=== PATIENT | female | born 1945 | race Caucasian/White ===

== ENCOUNTER 2016-08-05 13:42 | Inpatient (IN) | payer BC, MEDICARE ==
[2016-08-05] MEDS ORDERED: Sodium Chloride 0.9% 2.5 ML Syringe FLUSH PRN (13:46)
[2016-08-05] MEDS ORDERED: Sodium Chloride 0.9% 10 ML Syringe FLUSH PRN (13:46)
[2016-08-05] MEDS ORDERED: Sodium Chloride 0.9% 1,000 ML IV SCH ×2 (14:00→19:15)
--- NOTE | 2016-08-05 14:14 | EDM.PDOC ---
ED HPI GENERAL MEDICAL PROBLEM - General Chief Complaint: Neurological Problem Stated Complaint: AMBULANCE Time Seen by Provider: 08/05/16 13:45 - History of Present Illness INITIAL COMMENTS - FREE TEXT/NARRATIVE: HISTORY AND PHYSICAL: History of present illness: Patient is a 70-year-old white female history of dementia who presents with return of altered mental status and generalized weakness her is in her last 2 days states that she was more confused yesterday with a change in her gait that was more shuffling she also had an episode of incontinence of bladder and has been sleeping more but no documented fever cough she did have some loose stool for which gave Lomotil x1 dose. There's been no change in her medications no history of known trauma or other concern Review of systems: As per history of present illness and below otherwise all systems reviewed and negative. Past medical history: As per history of present illness and as reviewed below otherwise noncontributory. Surgical history: As per history of present illness and as reviewed below otherwise noncontributory. Social history: No reported history of drug or alcohol abuse. Family history: As per history of present illness and as reviewed below otherwise noncontributory. Physical exam: HEENT: Atraumatic, normocephalic, pupils reactive, negative for conjunctival pallor or scleral icterus, mucous membranes moist, throat clear, neck supple, nontender, trachea midline. Lungs: Clear to auscultation, breath sounds equal bilaterally, chest nontender. Heart: S1S2, regular, negative for clicks, rubs, or JVD. Abdomen: Soft, nondistended, nontender. Negative for masses or hepatosplenomegaly. Negative for costovertebral tenderness. Pelvis: Stable nontender. Genitourinary: Deferred. Rectal: Deferred. Extremities: Atraumatic, negative for cords or calf pain. Neurovascular unremarkable. Neuro: Awake, alert, oriented to person and place. Patient follows commands moves all extremities is limited but grossly nonfocal exam throughout. Exam nonfocal. Diagnostics: CBC CMP PT-INR ammonia level CT brain EKG UA urine culture blood culture x2 urine drug screen EtOH Therapeutics: IV O2 monitor Impression: #1 altered mental status #2 generalized weakness #3 history of dementia Definitive disposition and diagnosis as appropriate pending reevaluation and review of above. - Related Data Allergies Allergy/AdvReac Type Severity Reaction Status Date / Time No Known Allergies Allergy Verified 08/05/16 13:56 Home Meds: Home Meds Donepezil [Aricept] 10 mg PO DAILY 08/05/16 [History] Hydrochlorothiazide 25 mg PO DAILY 08/05/16 [History] OLANZapine [Olanzapine] 5 mg PO DAILY PRN 08/05/16 [History] Simvastatin [Zocor] 20 mg PO ASDIRECTED 08/05/16 [History] Venlafaxine HCl [Venlafaxine ER] 75 mg PO DAILY 08/05/16 [History] amLODIPine Besylate [Norvasc] 2.5 mg PO DAILY 08/05/16 [History] sitaGLIPtin Phos/Metformin HCl [Janumet 50-500 MG] 1 tab PO BID 08/05/16 [ History] Past Medical History Cardiovascular History: Reports: High Cholesterol, Hypertension Neurological History: Reports: Alzheimers Disease Psychiatric History: Reports: Alzheimers Disease, Depression Endocrine/Metabolic History: Reports: Diabetes, Type II - Past Surgical History GI Surgical History: Reports: Cholecystectomy Female Surgical History: Reports: Hysterectomy Social & Family History - Family History Family Medical History: Noncontributory - Tobacco Use Smoking Status *Q: Never Smoker - Caffeine Use Caffeine Use: Reports: None - Recreational Drug Use Recreational Drug Use: No ED ROS GENERAL - Review of Systems Review Of Systems: ROS reveals no pertinent complaints other than HPI. ED EXAM, GENERAL - Physical Exam Exam: See Below (See dictation) Course - Vital Signs Last Recorded V/S: Last Vital Signs Temp 37.7 C 08/05/16 17:46 Pulse 87 08/05/16 17:46 Resp 17 08/05/16 17:46 BP 138/69 08/05/16 17:46 Pulse Ox 94 L 08/05/16 17:58 - Orders/Labs/Meds Orders: Active Orders 24 hr Category Date Time Status Cardiac Monitoring [RC] . DIRECTED Care 08/05/16 13:45 Active EKG Documentation Completion [RC] STAT Care 08/05/16 13:45 Active Pulse Oximetry [RC] ASDIRECTED Care 08/05/16 13:45 Active CULTURE BLOOD [BC] Stat Lab 08/05/16 13:56 Received CULTURE BLOOD [BC] Stat Lab 08/05/16 14:40 Received CULTURE URINE [RM] Stat Lab 08/05/16 14:50 Received Sodium Chloride 0.9% [Normal Saline] 1,000 ml Med 08/05/16 14:00 Active IV STAT Sodium Chloride 0.9% [Saline Flush] Med 08/05/16 13:46 Active 10 ml FLUSH ASDIRECTED PRN Sodium Chloride 0.9% [Saline Flush] Med 08/05/16 13:46 Active 2.5 ml FLUSH ASDIRECTED PRN Blood Culture x2 Reflex Set [OM.PC] Stat Ot 08/05/16 13:46 Ordered Saline Lock Insert [OM.PC] Stat Ot 08/05/16 13:45 Ordered Medication Orders Acetaminophen (Tylenol) 650 mg PO Q4H PRN PRN Reason: Pain (Mild 1-3)/fever Sodium Chloride (Normal Saline) 1,000 mls @ 125 mls/hr IV STAT NORBERTO Last Admin: 08/05/16 14:27 Dose: 125 mls/hr Sodium Chloride (Saline Flush) 10 ml FLUSH ASDIRECTED PRN PRN Reason: Keep Vein Open Last Admin: 08/05/16 14:27 Dose: 10 ml Sodium Chloride (Saline Flush) 2.5 ml FLUSH ASDIRECTED PRN PRN Reason: Keep Vein Open Last Admin: 08/05/16 14:27 Dose: 2.5 ml Labs: Laboratory Tests 08/05/16 08/05/16 08/05/16 Range/Units 13:50 13:50 13:50 WBC 7.71 (4.0-11.0) K/uL RBC 4.89 (4.30-5.90) M/uL Hgb 14.6 (12.0-16.0) g/dL Hct 43.7 (36.0-46.0) % MCV 89.4 (80.0-98.0) fL MCH 29.9 (27.0-32.0) pg MCHC 33.4 (31.0-37.0) g/dL RDW Std Deviation 42.1 (28.0-62.0) fl RDW Coeff of Chacha 13 (11.0-15.0) % Plt Count 237 (150-400) K/uL MPV 9.80 (7.40-12.00) fL Neut % (Auto) 75.7 (48.0-80.0) % Lymph % (Auto) 14.3 L (16.0-40.0) % [place] % (Auto) 9.7 (0.0-15.0) % Eos % (Auto) 0.0 (0.0-7.0) % Baso % (Auto) 0.3 (0.0-1.5) % Neut # (Auto) 5.8 H (1.4-5.7) K/uL Lymph # (Auto) 1.1 (0.6-2.4) K/uL [place] # (Auto) 0.8 (0.0-0.8) K/uL Eos # (Auto) 0.0 (0.0-0.7) K/uL Baso # (Auto) 0.0 (0.0-0.1) K/uL Nucleated RBC % 0.0 /100WBC Nucleated RBCs # 0 K/uL INR 0.98 (0.86-1.11) D-Dimer, Quantitative 1.04 H (0.0-0.52) mg/LFEU Lactate 1.9 (0.20-2.00) mmol/L Sodium (136-146) mmol/L Potassium (3.5-5.1) mmol/L Chloride (98-110) mmol/L Carbon Dioxide (21-31) mmol/L BUN (6.0-23.0) mg/dL Creatinine (0.6-1.5) mg/dL Est Cr Clr Drug Dosing mL/min Estimated GFR (MDRD) ml/min Glucose (60-110) mg/dL Calcium (8.8-10.8) mg/dL Total Bilirubin (0.1-1.5) mg/dL AST (5-40) IU/L ALT (8-54) IU/L Alkaline Phosphatase (40-150) Ammonia (14-68) UG/DL Creatine Kinase (9-236) IU/L Total Protein (6.0-8.0) g/dL Albumin (3.4-4.8) g/dL Globulin (2.0-3.5) g/dL Albumin/Globulin Ratio (1.3-2.8) Urine Color Urine Appearance Urine pH (5.0-8.0) Ur Specific [place] (1.001-1.035) Urine Protein (NEGATIVE) mg/dL Urine Glucose (UA) (NEGATIVE) mg/dL Urine Ketones (NEGATIVE) mg/dL Urine Occult Blood (NEGATIVE) Urine Nitrite (NEGATIVE) Urine Bilirubin (NEGATIVE) Urine Urobilinogen (<2.0) EU/dL Ur Leukocyte Esterase (NEGATIVE) Urine RBC (0-2/HPF) Urine WBC (0-5/HPF) Ur Epithelial Cells (NONE-FEW) Urine Bacteria (NEGATIVE) Urine Opiates Screen (NEGATIVE) Ur Oxycodone Screen (NEGATIVE) Urine Methadone Screen (NEGATIVE) Ur Barbiturates Screen (NEGATIVE) Ur Phencyclidine Scrn (NEGATIVE) Ur Amphetamine Screen (NEGATIVE) U Methamphetamines Scrn (NEGATIVE) U Benzodiazepines Scrn (NEGATIVE) U Cocaine Metab Screen (NEGATIVE) U Marijuana (THC) Screen (NEGATIVE) Ethyl Alcohol mg/dL 08/05/16 08/05/16 08/05/16 Range/Units 13:50 13:50 13:50 WBC (4.0-11.0) K/uL RBC (4.30-5.90) M/uL Hgb (12.0-16.0) g/dL Hct (36.0-46.0) % MCV (80.0-98.0) fL MCH (27.0-32.0) pg MCHC (31.0-37.0) g/dL RDW Std Deviation (28.0-62.0) fl RDW Coeff of [place]acha (11.0-15.0) % Plt Count (150-400) K/uL MPV (7.40-12.00) fL Neut % (Auto) (48.0-80.0) % Lymph % (Auto) (16.0-40.0) % [place] % (Auto) (0.0-15.0) % Eos % (Auto) (0.0-7.0) % Baso % (Auto) (0.0-1.5) % Neut # (Auto) (1.4-5.7) K/uL Lymph # (Auto) (0.6-2.4) K/uL [place] # (Auto) (0.0-0.8) K/uL Eos # (Auto) (0.0-0.7) K/uL Baso # (Auto) (0.0-0.1) K/uL Nucleated RBC % /100WBC Nucleated RBCs # K/uL INR (0.86-1.11) D-Dimer, Quantitative (0.0-0.52) mg/LFEU Lactate (0.20-2.00) mmol/L Sodium 135 L (136-146) mmol/L Potassium 3.9 (3.5-5.1) mmol/L Chloride 98 (98-110) mmol/L Carbon Dioxide 25 (21-31) mmol/L BUN 11 (6.0-23.0) mg/dL Creatinine 0.9 (0.6-1.5) mg/dL Est Cr Clr Drug Dosing 52.34 mL/min Estimated GFR (MDRD) > 60.0 ml/min Glucose 203 H (60-110) mg/dL Calcium 9.8 (8.8-10.8) mg/dL Total Bilirubin 1.1 (0.1-1.5) mg/dL AST 18 (5-40) IU/L ALT 11 (8-54) IU/L Alkaline Phosphatase 67 (40-150) Ammonia 20 (14-68) UG/DL Creatine Kinase 61 (9-236) IU/L Total Protein 6.6 (6.0-8.0) g/dL Albumin 3.9 (3.4-4.8) g/dL Globulin 2.7 (2.0-3.5) g/dL Albumin/Globulin Ratio 1.4 (1.3-2.8) Urine Color Urine Appearance Urine pH (5.0-8.0) Ur Specific [place] (1.001-1.035) Urine Protein (NEGATIVE) mg/dL Urine Glucose (UA) (NEGATIVE) mg/dL Urine Ketones (NEGATIVE) mg/dL Urine Occult Blood (NEGATIVE) Urine Nitrite (NEGATIVE) Urine Bilirubin (NEGATIVE) Urine Urobilinogen (<2.0) EU/dL Ur Leukocyte Esterase (NEGATIVE) Urine RBC (0-2/HPF) Urine WBC (0-5/HPF) Ur Epithelial Cells (NONE-FEW) Urine Bacteria (NEGATIVE) Urine Opiates Screen (NEGATIVE) Ur Oxycodone Screen (NEGATIVE) Urine Methadone Screen (NEGATIVE) Ur Barbiturates Screen (NEGATIVE) Ur Phencyclidine Scrn (NEGATIVE) Ur Amphetamine Screen (NEGATIVE) U Methamphetamines Scrn (NEGATIVE) U Benzodiazepines Scrn (NEGATIVE) U Cocaine Metab Screen (NEGATIVE) U Marijuana (THC) Screen (NEGATIVE) Ethyl Alcohol < 10.0 mg/dL 08/05/16 08/05/16 Range/Units 14:50 14:50 WBC (4.0-11.0) K/uL RBC (4.30-5.90) M/uL Hgb (12.0-16.0) g/dL Hct (36.0-46.0) % MCV (80.0-98.0) fL MCH (27.0-32.0) pg MCHC (31.0-37.0) g/dL RDW Std Deviation (28.0-62.0) fl RDW Coeff of [place] (11.0-15.0) % Plt Count (150-400) K/uL MPV (7.40-12.00) fL Neut % (Auto) (48.0-80.0) % Lymph % (Auto) (16.0-40.0) % [place] % (Auto) (0.0-15.0) % Eos % (Auto) (0.0-7.0) % Baso % (Auto) (0.0-1.5) % Neut # (Auto) (1.4-5.7) K/uL Lymph # (Auto) (0.6-2.4) K/uL [place] # (Auto) (0.0-0.8) K/uL Eos # (Auto) (0.0-0.7) K/uL Baso # (Auto) (0.0-0.1) K/uL Nucleated RBC % /100WBC Nucleated RBCs # K/uL INR (0.86-1.11) D-Dimer, Quantitative (0.0-0.52) mg/LFEU Lactate (0.20-2.00) mmol/L Sodium (136-146) mmol/L Potassium (3.5-5.1) mmol/L Chloride (98-110) mmol/L Carbon Dioxide (21-31) mmol/L BUN (6.0-23.0) mg/dL Creatinine (0.6-1.5) mg/dL Est Cr Clr Drug Dosing mL/min Estimated GFR (MDRD) ml/min Glucose (60-110) mg/dL Calcium (8.8-10.8) mg/dL Total Bilirubin (0.1-1.5) mg/dL AST (5-40) IU/L ALT (8-54) IU/L Alkaline Phosphatase (40-150) Ammonia (14-68) UG/DL Creatine Kinase (9-236) IU/L Total Protein (6.0-8.0) g/dL Albumin (3.4-4.8) g/dL Globulin (2.0-3.5) g/dL Albumin/Globulin Ratio (1.3-2.8) Urine Color YELLOW Urine Appearance CLEAR Urine pH 6.0 (5.0-8.0) Ur Specific [place] 1.015 (1.001-1.035) Urine Protein NEGATIVE (NEGATIVE) mg/dL Urine Glucose (UA) 500 H (NEGATIVE) mg/dL Urine Ketones TRACE H (NEGATIVE) mg/dL Urine Occult Blood NEGATIVE (NEGATIVE) Urine Nitrite NEGATIVE (NEGATIVE) Urine Bilirubin NEGATIVE (NEGATIVE) Urine Urobilinogen 1.0 (<2.0) EU/dL Ur Leukocyte Esterase NEGATIVE (NEGATIVE) Urine RBC 0-1 (0-2/HPF) Urine WBC 0-2 (0-5/HPF) Ur Epithelial Cells FEW (NONE-FEW) Urine Bacteria FEW (NEGATIVE) Urine Opiates Screen NEGATIVE (NEGATIVE) Ur Oxycodone Screen NEGATIVE (NEGATIVE) Urine Methadone Screen NEGATIVE (NEGATIVE) Ur Barbiturates Screen NEGATIVE (NEGATIVE) Ur Phencyclidine Scrn NEGATIVE (NEGATIVE) Ur Amphetamine Screen NEGATIVE (NEGATIVE) U Methamphetamines Scrn NEGATIVE (NEGATIVE) U Benzodiazepines Scrn NEGATIVE (NEGATIVE) U Cocaine Metab Screen NEGATIVE (NEGATIVE) U Marijuana (THC) Screen NEGATIVE (NEGATIVE) Ethyl Alcohol mg/dL Meds: Medications Generic Name Dose Route Start Last Admin Trade Name Yoelq PRN Reason Stop Dose Admin Acetaminophen 650 mg 08/05/16 17:58 Tylenol PO Q4H PRN Pain (Mild 1-3)/fever Sodium Chloride 1,000 mls @ 125 mls/hr 08/05/16 14:00 08/05/16 14:27 Normal Saline IV 125 mls/hr STAT NORBERTO Administration Sodium Chloride 10 ml 08/05/16 13:46 08/05/16 14:27 Saline Flush FLUSH 10 ml ASDIRECTED PRN Administration Keep Vein Open Sodium Chloride 2.5 ml 08/05/16 13:46 08/05/16 14:27 Saline Flush FLUSH 2.5 ml ASDIRECTED PRN Administration Keep Vein Open Departure - Departure Time of Disposition: 17:00 Disposition: Admitted As Inpatient 66 Condition: good Clinical Impression: Altered mental status - Discharge Information - My Orders Last 24 Hours: My Active Orders 08/05/16 13:45 Cardiac Monitoring [RC] . DIRECTED EKG Documentation Completion [RC] STAT Pulse Oximetry [RC] ASDIRECTED Saline Lock Insert [OM.PC] Stat 08/05/16 13:46 Sodium Chloride 0.9% [Saline Flush] 10 ml FLUSH ASDIRECTED PRN Sodium Chloride 0.9% [Saline Flush] 2.5 ml FLUSH ASDIRECTED PRN Blood Culture x2 Reflex Set [OM.PC] Stat 08/05/16 13:56 CULTURE BLOOD [BC] Stat 08/05/16 14:00 Sodium Chloride 0.9% [Normal Saline] 1,000 ml IV STAT 08/05/16 14:40 CULTURE BLOOD [BC] Stat 08/05/16 14:50 CULTURE URINE [RM] Stat - Assessment/Plan Last 24 Hours: My Active Orders 08/05/16 13:45 Cardiac Monitoring [RC] . DIRECTED EKG Documentation Completion [RC] STAT Pulse Oximetry [RC] ASDIRECTED Saline Lock Insert [OM.PC] Stat 08/05/16 13:46 Sodium Chloride 0.9% [Saline Flush] 10 ml FLUSH ASDIRECTED PRN Sodium Chloride 0.9% [Saline Flush] 2.5 ml FLUSH ASDIRECTED PRN Blood Culture x2 Reflex Set [OM.PC] Stat 08/05/16 13:56 CULTURE BLOOD [BC] Stat 08/05/16 14:00 Sodium Chloride 0.9% [Normal Saline] 1,000 ml IV STAT 08/05/16 14:40 CULTURE BLOOD [BC] Stat 08/05/16 14:50 CULTURE URINE [RM] Stat
--- NOTE | 2016-08-05 14:30 | CT ---
EXAMINATION: Non contrast CT head. Coronal and sagittal reformats. HISTORY: Pain FINDINGS: No evidence of intra or extra axial hemorrhage, mass, midline shift, hydrocephalus or edema. Modera te periventricular and subcortical white matter hypodensities are noted. No hypoattenuation changes in the major vascular territories to suggest acute infarct. The orbits a nd globes appear symmetric. No abnormal intracranial calcifications are detected. No evidence of substantial vascular calcifica tions. Paranasal sinuses and mastoid air cells are well aerated without substantial findings. Pituitary fossa appears unremarkable. Calvarium is intact. No evidence of skull fracture. Small subcutaneous scalp nodules noted. IMPRESSION: 1. No acute intracranial findings. 2. Moderate small vessel ischemic changes.
[2016-08-05 14:31] LABS: CHLORIDE,CL 98 mmol/L (98-110); SODIUM,NA 135 mmol/L (136-146)
--- NOTE | 2016-08-05 18:11 | PCM.HP ---
H&P History of Present Illness - General Date of Service: 08/05/16 Source of Information: Family History Limitations: Reports: Altered Mental Status - History of Present Illness Initial Comments - Free Text/Narative: 70 yo fm with history of DM, HTN and Alzheimers admitted for generalized weakness and AMS. History is provided by patients . Since yesterday she has been weak, lethargic and less responsive than her usual self. She was appearing to be shuffling while walking yesterday but then stopped walking all together. She had an episode of urinary incontinence which is unusual for her. This morning she would not get out of bed and that is when decided to call the ambulance. Prior to all this beginning she had a fall. was with her and states that she was trying to run forward and ended up falling. She was on the ground for a few minutes and needed to get help to get her up. She did not have LOC but did appear to be in minor pain. thinks she developed a small bruise on her right shoulder but she has been able to move it without difficulty. He denies any other recent illnesses or falls. - Related Data Allergies/Adverse Reactions: Allergies Allergy/AdvReac Type Severity Reaction Status Date / Time No Known Allergies Allergy Verified 08/05/16 13:56 Home Medications: Home Meds Donepezil [Aricept] 10 mg PO DAILY 08/05/16 [History] Hydrochlorothiazide 25 mg PO DAILY 08/05/16 [History] OLANZapine [Olanzapine] 5 mg PO DAILY PRN 08/05/16 [History] Simvastatin [Zocor] 20 mg PO ASDIRECTED 08/05/16 [History] Venlafaxine HCl [Venlafaxine ER] 75 mg PO DAILY 08/05/16 [History] amLODIPine Besylate [Norvasc] 2.5 mg PO DAILY 08/05/16 [History] sitaGLIPtin Phos/Metformin HCl [Janumet 50-500 MG] 1 tab PO BID 08/05/16 [ History] Past Medical History Cardiovascular History: Reports: High Cholesterol, Hypertension Neurological History: Reports: Alzheimers Disease Psychiatric History: Reports: Alzheimers Disease, Depression Endocrine/Metabolic History: Reports: Diabetes, Type II - Past Surgical History GI Surgical History: Reports: Cholecystectomy Female Surgical History: Reports: Hysterectomy Social & Family History - Family History Family Medical History: Noncontributory - Tobacco Use Smoking Status *Q: Never Smoker Second Hand Smoke Exposure: No - Caffeine Use Caffeine Use: Reports: None - Recreational Drug Use Recreational Drug Use: No H&P Review of Systems - Review of Systems: Review Of Systems: Unable To Obtain (Information provided by in HPI) Exam - Exam Exam: See Below - Vital Signs Vital Signs: Last Vital Signs Temp 37.7 C 08/05/16 17:46 Pulse 87 08/05/16 17:46 Resp 17 08/05/16 17:46 BP 138/69 08/05/16 17:46 Pulse Ox 94 L 08/05/16 17:46 Weight: 74 kg - Exam General: Other (patient lying bed, no distress, appears comfortable ). No: Alert, Oriented HEENT: Conjunctiva Clear, EACs Clear Neck: Supple, Trachea Midline, +2 Carotid Pulse wo Bruit. No: JVD Lungs: Clear to Auscultation, Normal Respiratory Effort Cardiovascular: Regular Rate, Regular Rhythm Abdomen: Normal Bowel Sounds, Soft. No: Distention, Guarding, Rigidity, Rebound , Tenderness Back Exam: Normal Inspection, Full Range of Motion Extremities: Normal Inspection. No: Edema, Increased Warmth Peripheral Pulses: 1+: Dorsalis Pedis (L), Dorsalis Pedis (R) Skin: Intact, Other (small bruise over right shoulder ). No: Rash, Wound Neurological: Reflexes Equal Bilateral Neuro Extensive - Mental Status: No: Alert, Oriented x3, Normal Mood/Affect, Normal Cognition, Memory Intact - Patient Data Result Diagrams: 08/05/16 13:50 08/05/16 13:50 *Q Meaningful Use (ADM) - VTE *Q VTE Criteria *Q: - Stroke *Q Stroke Criteria *Q: - AMI *Q AMI Criteria *Q: Problem List Initiated/Reviewed/Updated: Yes Orders Last 24hrs: Active Orders 24 hr Category Date Time Status Telemetry Monitoring [Cardiac Monitoring] [RC] Q8H Care 08/05/16 17:19 Active ADA Diabetic [[employer] Diet] [DIET Diet 08/05/16 Dinner Active ] Medication Orders Sodium Chloride (Normal Saline) 1,000 mls @ 125 mls/hr IV STAT NORBERTO Last Admin: 08/05/16 14:27 Dose: 125 mls/hr Sodium Chloride (Saline Flush) 10 ml FLUSH ASDIRECTED PRN PRN Reason: Keep Vein Open Last Admin: 08/05/16 14:27 Dose: 10 ml Sodium Chloride (Saline Flush) 2.5 ml FLUSH ASDIRECTED PRN PRN Reason: Keep Vein Open Last Admin: 08/05/16 14:27 Dose: 2.5 ml Assessment/Plan Comment:: 70 yo fm with history of DM, HTN and Az Dementia admitted for Generalized Weakness and AMS. Vitals stable. EKG wnl. CT Head negative for acute changes. CBC wnl. UA wnl. UDS wnl. Ammonia wnl. Lactic Acid wnl. CMP wnl except for mild hyponatremia. 1. Generalized Weakness: hold home Simvastatin. continue IV NS @ 125 ml/hour. order Total CK. order PT consult. repeat CBC & BMP AM. 2. Altered Mental Status: order CXR. f/u BC & UC. 3. DM Type 2: DC home Janumet. start Novolog with low dose sliding scale, glucose check TIDAC 4. Az Dementia: resume home Donepezil 10 mg daily at night 5. HTN: resume home Amlodipine and HCTZ 6. DVT Prophylaxis: SCD 7. As per orders
[2016-08-05] MEDS: Donepezil 10 MG Tab PO SCH (21:21)
[2016-08-06 06:46] LABS: CHLORIDE,CL 104 mmol/L (98-110); SODIUM,NA 135 mmol/L (136-146)
[2016-08-06] MEDS: Insulin Aspart 100 Units/ML 3 ML Pen SUBCUT SCH ×3 (07:12→18:18)
[2016-08-06] MEDS: amLODIPine 2.5 MG Tab PO SCH (08:39)
[2016-08-06] MEDS: Hydrochlorothiazide 25 MG Tab PO SCH (08:39)
--- NOTE | 2016-08-06 13:00 | PCM.PN ---
- Review of Systems Systems Review Comment:: more alert today - Patient Data Vitals - most recent: Last Vital Signs Temp 37.0 C 08/06/16 12:00 Pulse 71 08/06/16 12:00 Resp 16 08/06/16 12:00 BP 111/57 L 08/06/16 12:00 Pulse Ox 97 08/06/16 12:00 Weight - most recent: 74 kg I&O - last 24 hours: Intake & Output 08/05/16 08/06/16 08/06/16 22:59 06:59 14:59 Intake Total 1149 550 Output Total 200 Balance 949 550 Lab Results last 24 hrs: Laboratory Results - last 24 hr 08/05/16 08/06/16 08/06/16 Range/Units 18:01 05:31 05:31 WBC 6.58 (4.0-11.0) K/uL RBC 4.51 (4.30-5.90) M/uL Hgb 13.8 (12.0-16.0) g/dL Hct 41.0 (36.0-46.0) % MCV 90.9 (80.0-98.0) fL MCH 30.6 (27.0-32.0) pg MCHC 33.7 (31.0-37.0) g/dL RDW Std Deviation 41.9 (28.0-62.0) fl RDW Coeff of Chacha 13 (11.0-15.0) % Plt Count 267 (150-400) K/uL MPV 10.90 (7.40-12.00) fL Neut % (Auto) 70.7 (48.0-80.0) % Lymph % (Auto) 14.4 L (16.0-40.0) % [place] % (Auto) 12.6 (0.0-15.0) % Eos % (Auto) 2.0 (0.0-7.0) % Baso % (Auto) 0.3 (0.0-1.5) % Neut # (Auto) 4.7 (1.4-5.7) K/uL Lymph # (Auto) 1.0 (0.6-2.4) K/uL [place] # (Auto) 0.8 (0.0-0.8) K/uL Eos # (Auto) 0.1 (0.0-0.7) K/uL Baso # (Auto) 0.0 (0.0-0.1) K/uL Sodium 135 L (136-146) mmol/L Potassium 4.5 (3.5-5.1) mmol/L Chloride 104 (98-110) mmol/L Carbon Dioxide 22 (21-31) mmol/L BUN 13 (6.0-23.0) mg/dL Creatinine 0.9 (0.6-1.5) mg/dL Est Cr Clr Drug Dosing 52.34 mL/min Estimated GFR (MDRD) > 60.0 ml/min Glucose 212 H (60-110) mg/dL POC Glucose 158 H (60-110) mg/dL Calcium 9.1 (8.8-10.8) mg/dL 08/06/16 Range/Units 06:08 WBC (4.0-11.0) K/uL RBC (4.30-5.90) M/uL Hgb (12.0-16.0) g/dL Hct (36.0-46.0) % MCV (80.0-98.0) fL MCH (27.0-32.0) pg MCHC (31.0-37.0) g/dL RDW Std Deviation (28.0-62.0) fl RDW Coeff of [place] (11.0-15.0) % Plt Count (150-400) K/uL MPV (7.40-12.00) fL Neut % (Auto) (48.0-80.0) % Lymph % (Auto) (16.0-40.0) % [place] % (Auto) (0.0-15.0) % Eos % (Auto) (0.0-7.0) % Baso % (Auto) (0.0-1.5) % Neut # (Auto) (1.4-5.7) K/uL Lymph # (Auto) (0.6-2.4) K/uL [place] # (Auto) (0.0-0.8) K/uL Eos # (Auto) (0.0-0.7) K/uL Baso # (Auto) (0.0-0.1) K/uL Sodium (136-146) mmol/L Potassium (3.5-5.1) mmol/L Chloride (98-110) mmol/L Carbon Dioxide (21-31) mmol/L BUN (6.0-23.0) mg/dL Creatinine (0.6-1.5) mg/dL Est Cr Clr Drug Dosing mL/min Estimated GFR (MDRD) ml/min Glucose (60-110) mg/dL POC Glucose 206 H (60-110) mg/dL Calcium (8.8-10.8) mg/dL Med Orders - Current: Current Medications Acetaminophen (Tylenol) 650 mg PO Q4H PRN PRN Reason: Pain (Mild 1-3)/fever Amlodipine Besylate (Norvasc) 2.5 mg PO DAILY [facility] Last Admin: 08/06/16 08:39 Dose: 2.5 mg Donepezil HCl (Aricept) 10 mg PO BEDTIME [facility] Last Admin: 08/05/16 21:21 Dose: 10 mg Hydrochlorothiazide (Hydrochlorothiazide) 25 mg PO DAILY [facility] Last Admin: 08/06/16 08:39 Dose: 25 mg Insulin Aspart (Novolog) 0 unit SUBCUT TIDAC [facility] PRN Reason: Protocol Last Admin: 08/06/16 12:22 Dose: 2 units Sodium Chloride (Saline Flush) 10 ml FLUSH ASDIRECTED PRN PRN Reason: Keep Vein Open Last Admin: 08/05/16 14:27 Dose: 10 ml Sodium Chloride (Saline Flush) 2.5 ml FLUSH ASDIRECTED PRN PRN Reason: Keep Vein Open Last Admin: 08/05/16 14:27 Dose: 2.5 ml Discontinued Medications Sodium Chloride (Normal Saline) 1,000 mls @ 125 mls/hr IV STAT [facility] Last Admin: 08/05/16 14:27 Dose: 125 mls/hr Sodium Chloride (Normal Saline) 1,000 mls @ 125 mls/hr IV ASDIRECTED [facility] Last Admin: 08/05/16 22:23 Dose: 125 mls/hr - Exam General: no acute distress Lungs: Clear to auscultation, Normal respiratory effort Cardiovascular: Regular Rate, Regular Rhythm Abdomen: bowel sounds present, soft, no tenderness, no distension Extremities: edema (mild pedal edema) - Problem List Review Problem List Initiated/Reviewed/Updated: Yes - My Orders Last 24 Hours: My Active Orders 05/19/17 17:19 Telemetry Monitoring [Cardiac Monitoring] [RC] Q8H 08/06/16 12:56 Echo 2D wo Cont [US] Routine - Plan Plan:: 70 yo fm with history of DM, HTN and Az Dementia admitted for Generalized Weakness and AMS. Patient has improved with hydration. will continue to monitor CXR reported mild pulmonary edema, patient is not hypoxic or short of breath. fluids were discontinued, will order echocardiogram Patient will likley need SNF placement.
[2016-08-06] MEDS: Acetaminophen 325 MG Tab PO PRN (19:51)
[2016-08-06] MEDS: Donepezil 10 MG Tab PO SCH (20:38)
[2016-08-07 07:02] LABS: CHLORIDE,CL 101 mmol/L (98-110); SODIUM,NA 136 mmol/L (136-146)
[2016-08-07] MEDS: Insulin Aspart 100 Units/ML 3 ML Pen SUBCUT SCH ×3 (07:27→18:16)
[2016-08-07] MEDS: Hydrochlorothiazide 25 MG Tab PO SCH (09:18)
[2016-08-07] MEDS: amLODIPine 2.5 MG Tab PO SCH (09:18)
--- NOTE | 2016-08-07 13:11 | PCM.PN ---
- General Info Date of Service: 08/07/16 Subjective Update: Patient doing well improving. feels that her weakness is improving. Patient has no complaints. and son are concerned of choking/caughing when she drinks water. Functional Status: Reports: pain controlled, tolerating diet, ambulating, urinating - Review of Systems General: Reports: No Symptoms HEENT: Reports: no symptoms Pulmonary: Reports: no symptoms Cardiovascular: Reports: No Symptoms Gastrointestinal: Reports: No symptoms Genitourinary: Reports: no symptoms Musculoskeletal: Reports: no symptoms Skin: Reports: no symptoms Neurological: Reports: No Symptoms Psychiatric: Reports: no symptoms - Patient Data Vitals - most recent: Last Vital Signs Temp 37.2 C 08/07/16 11:00 Pulse 76 08/07/16 11:00 Resp 14 08/07/16 11:00 BP 124/64 08/07/16 11:00 Pulse Ox 99 08/07/16 11:00 Weight - most recent: 75.5 kg I&O - last 24 hours: Intake & Output 08/06/16 08/07/16 08/07/16 22:59 06:59 14:59 Intake Total 930 400 Output Total 982 1050 Balance -52 -650 Lab Results last 24 hrs: Laboratory Results - last 24 hr 08/06/16 08/06/16 08/07/16 Range/Units 11:14 16:44 06:24 WBC (4.0-11.0) K/uL RBC (4.30-5.90) M/uL Hgb (12.0-16.0) g/dL Hct (36.0-46.0) % MCV (80.0-98.0) fL MCH (27.0-32.0) pg MCHC (31.0-37.0) g/dL RDW Std Deviation (28.0-62.0) fl RDW Coeff of Chacha (11.0-15.0) % Plt Count (150-400) K/uL MPV (7.40-12.00) fL Neut % (Auto) (48.0-80.0) % Lymph % (Auto) (16.0-40.0) % [place] % (Auto) (0.0-15.0) % Eos % (Auto) (0.0-7.0) % Baso % (Auto) (0.0-1.5) % Neut # (Auto) (1.4-5.7) K/uL Lymph # (Auto) (0.6-2.4) K/uL [place] # (Auto) (0.0-0.8) K/uL Eos # (Auto) (0.0-0.7) K/uL Baso # (Auto) (0.0-0.1) K/uL Nucleated RBC % /100WBC Nucleated RBCs # K/uL Sodium (136-146) mmol/L Potassium (3.5-5.1) mmol/L Chloride (98-110) mmol/L Carbon Dioxide (21-31) mmol/L BUN (6.0-23.0) mg/dL Creatinine (0.6-1.5) mg/dL Est Cr Clr Drug Dosing mL/min Estimated GFR (MDRD) ml/min Glucose (60-110) mg/dL POC Glucose 235 H 250 H 222 H (60-110) mg/dL Calcium (8.8-10.8) mg/dL 08/07/16 08/07/16 08/07/16 Range/Units 06:26 06:26 11:14 WBC 5.50 (4.0-11.0) K/uL RBC 4.80 (4.30-5.90) M/uL Hgb 14.4 (12.0-16.0) g/dL Hct 42.8 (36.0-46.0) % MCV 89.2 (80.0-98.0) fL MCH 30.0 (27.0-32.0) pg MCHC 33.6 (31.0-37.0) g/dL RDW Std Deviation 41.8 (28.0-62.0) fl RDW Coeff of Chacha 13 (11.0-15.0) % Plt Count 210 (150-400) K/uL MPV 9.70 (7.40-12.00) fL Neut % (Auto) 71.5 (48.0-80.0) % Lymph % (Auto) 15.8 L (16.0-40.0) % [place] % (Auto) 11.8 (0.0-15.0) % Eos % (Auto) 0.5 (0.0-7.0) % Baso % (Auto) 0.4 (0.0-1.5) % Neut # (Auto) 3.9 (1.4-5.7) K/uL Lymph # (Auto) 0.9 (0.6-2.4) K/uL [place] # (Auto) 0.7 (0.0-0.8) K/uL Eos # (Auto) 0.0 (0.0-0.7) K/uL Baso # (Auto) 0.0 (0.0-0.1) K/uL Nucleated RBC % 0.0 /100WBC Nucleated RBCs # 0 K/uL Sodium 136 (136-146) mmol/L Potassium 4.0 (3.5-5.1) mmol/L Chloride 101 (98-110) mmol/L Carbon Dioxide 26 (21-31) mmol/L BUN 14 (6.0-23.0) mg/dL Creatinine 0.9 (0.6-1.5) mg/dL Est Cr Clr Drug Dosing 52.34 mL/min Estimated GFR (MDRD) > 60.0 ml/min Glucose 258 H (60-110) mg/dL POC Glucose 308 H (60-110) mg/dL Calcium 10.1 (8.8-10.8) mg/dL Med Orders - Current: Current Medications Acetaminophen (Tylenol) 650 mg PO Q4H PRN PRN Reason: Pain (Mild 1-3)/fever Last Admin: 08/06/16 19:51 Dose: 650 mg Amlodipine Besylate (Norvasc) 2.5 mg PO DAILY [facility] Last Admin: 08/07/16 09:18 Dose: 2.5 mg Donepezil HCl (Aricept) 10 mg PO BEDTIME [facility] Last Admin: 08/06/16 20:38 Dose: 10 mg Hydrochlorothiazide (Hydrochlorothiazide) 25 mg PO DAILY [facility] Last Admin: 08/07/16 09:18 Dose: 25 mg Insulin Aspart (Novolog) 0 unit SUBCUT TIDAC NORBERTO PRN Reason: Protocol Last Admin: 08/07/16 11:56 Dose: 4 units Sodium Chloride (Saline Flush) 10 ml FLUSH ASDIRECTED PRN PRN Reason: Keep Vein Open Last Admin: 08/05/16 14:27 Dose: 10 ml Sodium Chloride (Saline Flush) 2.5 ml FLUSH ASDIRECTED PRN PRN Reason: Keep Vein Open Last Admin: 08/05/16 14:27 Dose: 2.5 ml Discontinued Medications Sodium Chloride (Normal Saline) 1,000 mls @ 125 mls/hr IV STAT [facility]BERTO Last Admin: 08/05/16 14:27 Dose: 125 mls/hr Sodium Chloride (Normal Saline) 1,000 mls @ 125 mls/hr IV ASDIRECTED NORBERTO Last Admin: 08/05/16 22:23 Dose: 125 mls/hr - Exam General: alert, cooperative, no acute distress HEENT: Pupils equal Neck: supple, no JVD Lungs: Normal respiratory effort, Decreased breath sounds Cardiovascular: Regular Rate, Regular Rhythm Abdomen: bowel sounds present, soft, no tenderness, no distension Extremities: no edema Neurological: no new focal deficit - Problem List Review Problem List Initiated/Reviewed/Updated: Yes - My Orders Last 24 Hours: My Active Orders 08/08/16 05:11 BASIC METABOLIC PANEL,BMP [CHEM] AM CBC WITH AUTO DIFF [HEME] AM 08/09/16 05:11 BASIC METABOLIC PANEL,BMP [CHEM] AM CBC WITH AUTO DIFF [HEME] AM 08/10/16 05:11 BASIC METABOLIC PANEL,BMP [CHEM] AM CBC WITH AUTO DIFF [HEME] AM - Plan Plan:: 70 yo fm with history of DM, HTN and Az Dementia admitted for Generalized Weakness and AMS. -Patient has improved with hydration. will continue to monitor -CXR reported mild pulmonary edema, patient is not hypoxic or short of breath. fluids were discontinued. Echo Tomorrow -Consult Speech Pathology for swallow difficulty -Patient will likley need SNF placement.
[2016-08-07] MEDS: Acetaminophen 325 MG Tab PO PRN (17:41)
[2016-08-07] MEDS: Donepezil 10 MG Tab PO SCH (21:47)
[2016-08-08 06:08] LABS: CHLORIDE,CL 99 mmol/L (98-110); SODIUM,NA 133 mmol/L (136-146)
[2016-08-08] MEDS: Insulin Aspart 100 Units/ML 3 ML Pen SUBCUT SCH ×3 (10:08→17:29)
[2016-08-08] MEDS: amLODIPine 2.5 MG Tab PO SCH (10:14)
[2016-08-08] MEDS: Hydrochlorothiazide 25 MG Tab PO SCH (10:14)
[2016-08-08] MEDS: Acetaminophen 325 MG Tab PO PRN ×2 (10:14→18:24)
--- NOTE | 2016-08-08 14:06 | CR ---
EXAM DATE: 08/05/16 PATIENT'S AGE: 70 Patient: CARY BAILEY Facility: [place], [place] Site . Site : 1945 Study: XRay Chest [id number] 10:48:58 PM Ordering Physician: Yolande Burciaga Final Report: INDICATION: Altered mental status. TECHNIQUE: Chest radiograph 1 view COMPARISON: None FINDINGS: Diminished lung volumes. Heart size upper limits of normal with central vascular congestion and mild degree of interstitial pulmonary edema. No pneumothorax or definite blunting of costophrenic sulci. Bones and soft tissues unremarkable. IMPRESSION: 1. Likely early congestive heart failure pattern with mild degree of interstitial pulmonary edema and central vascular congestion. No focal infiltrate or pleural effusion. Dictated by Jonathan Vidal MD @ 08/05/2016 11:06:09 PM Dictated by: Jonathan Vidal MD @ 08/05/2016 23:06:16 (Electronic Signature) Report Signed by Proxy. [facility]IAL HOSPITALEliezer
--- NOTE | 2016-08-08 14:19 | PCM.PN ---
- General Info Date of Service: 08/08/16 Subjective Update: Patient doing well improving. feels that her weakness is improving. Patient has no complaints. Functional Status: Reports: pain controlled, tolerating diet, ambulating, urinating - Review of Systems General: Reports: No Symptoms HEENT: Reports: no symptoms Pulmonary: Reports: no symptoms Cardiovascular: Reports: No Symptoms Gastrointestinal: Reports: No symptoms Genitourinary: Reports: no symptoms Musculoskeletal: Reports: no symptoms Skin: Reports: no symptoms - Patient Data Vitals - most recent: Last Vital Signs Temp 36.9 C 08/08/16 11:00 Pulse 77 08/08/16 11:00 Resp 20 08/08/16 11:00 BP 123/66 08/08/16 11:00 Pulse Ox 95 08/08/16 11:00 Weight - most recent: 75.5 kg I&O - last 24 hours: Intake & Output 08/07/16 08/08/16 08/08/16 22:59 06:59 14:59 Intake Total 1300 450 Output Total 850 1420 Balance 450 -970 Lab Results last 24 hrs: Laboratory Results - last 24 hr 08/07/16 08/08/16 08/08/16 Range/Units 16:18 05:28 05:28 WBC 5.53 (4.0-11.0) K/uL RBC 4.63 (4.30-5.90) M/uL Hgb 14.2 (12.0-16.0) g/dL Hct 40.7 (36.0-46.0) % MCV 87.9 (80.0-98.0) fL MCH 30.7 (27.0-32.0) pg MCHC 34.9 (31.0-37.0) g/dL RDW Std Deviation 41.0 (28.0-62.0) fl RDW Coeff of Chacha 13 (11.0-15.0) % Plt Count 223 (150-400) K/uL MPV 9.80 (7.40-12.00) fL Add Manual Diff YES Neutrophils % (Manual) 57 (48.0-80.0) % Band Neutrophils % 2 % Lymphocytes % (Manual) 29 (16.0-40.0) % Monocytes % (Manual) 10 (0.0-15.0) % Eosinophils % (Manual) 1 (0.0-7.0) % Basophils % (Manual) 1 (0.0-1.5) % Nucleated RBC % 0.0 /100WBC Absolute Seg Neuts 3.2 Band Neutrophils # 0.1 Lymphocytes # (Manual) 1.6 Monocytes # (Manual) 0.6 Eosinophils # (Manual) 0.1 Basophils # (Manual) 0 Nucleated RBCs # 0 K/uL Sodium 133 L (136-146) mmol/L Potassium 3.9 (3.5-5.1) mmol/L Chloride 99 (98-110) mmol/L Carbon Dioxide 22 (21-31) mmol/L BUN 15 (6.0-23.0) mg/dL Creatinine 0.9 (0.6-1.5) mg/dL Est Cr Clr Drug Dosing 52.34 mL/min Estimated GFR (MDRD) > 60.0 ml/min Glucose 320 H (60-110) mg/dL POC Glucose 286 H (60-110) mg/dL Calcium 10.1 (8.8-10.8) mg/dL 08/08/16 08/08/16 08/08/16 Range/Units 06:27 10:05 13:03 WBC (4.0-11.0) K/uL RBC (4.30-5.90) M/uL Hgb (12.0-16.0) g/dL Hct (36.0-46.0) % MCV (80.0-98.0) fL MCH (27.0-32.0) pg MCHC (31.0-37.0) g/dL RDW Std Deviation (28.0-62.0) fl RDW Coeff of Chacha (11.0-15.0) % Plt Count (150-400) K/uL MPV (7.40-12.00) fL Add Manual Diff Neutrophils % (Manual) (48.0-80.0) % Band Neutrophils % % Lymphocytes % (Manual) (16.0-40.0) % Monocytes % (Manual) (0.0-15.0) % Eosinophils % (Manual) (0.0-7.0) % Basophils % (Manual) (0.0-1.5) % Nucleated RBC % /100WBC Absolute Seg Neuts Band Neutrophils # Lymphocytes # (Manual) Monocytes # (Manual) Eosinophils # (Manual) Basophils # (Manual) Nucleated RBCs # K/uL Sodium (136-146) mmol/L Potassium (3.5-5.1) mmol/L Chloride (98-110) mmol/L Carbon Dioxide (21-31) mmol/L BUN (6.0-23.0) mg/dL Creatinine (0.6-1.5) mg/dL Est Cr Clr Drug Dosing mL/min Estimated GFR (MDRD) ml/min Glucose (60-110) mg/dL POC Glucose 292 H 306 H 288 H (60-110) mg/dL Calcium (8.8-10.8) mg/dL Med Orders - Current: Current Medications Acetaminophen (Tylenol) 650 mg PO Q4H PRN PRN Reason: Pain (Mild 1-3)/fever Last Admin: 08/08/16 10:14 Dose: 650 mg Amlodipine Besylate (Norvasc) 2.5 mg PO DAILY [facility] Last Admin: 08/08/16 10:14 Dose: 2.5 mg Donepezil HCl (Aricept) 10 mg PO BEDTIME [facility] Last Admin: 08/07/16 21:47 Dose: 10 mg Hydrochlorothiazide (Hydrochlorothiazide) 25 mg PO DAILY [facility] Last Admin: 08/08/16 10:14 Dose: 25 mg Insulin Aspart (Novolog) 0 unit SUBCUT TIDAC NORBERTO PRN Reason: Protocol Last Admin: 08/08/16 13:08 Dose: 6 units Sodium Chloride (Saline Flush) 10 ml FLUSH ASDIRECTED PRN PRN Reason: Keep Vein Open Last Admin: 08/05/16 14:27 Dose: 10 ml Sodium Chloride (Saline Flush) 2.5 ml FLUSH ASDIRECTED PRN PRN Reason: Keep Vein Open Last Admin: 08/05/16 14:27 Dose: 2.5 ml Discontinued Medications Sodium Chloride (Normal Saline) 1,000 mls @ 125 mls/hr IV STAT [facility] Last Admin: 08/05/16 14:27 Dose: 125 mls/hr Sodium Chloride (Normal Saline) 1,000 mls @ 125 mls/hr IV ASDIRECTED NORBERTO Last Admin: 08/05/16 22:23 Dose: 125 mls/hr - Exam General: alert, cooperative, no acute distress Neck: supple, no JVD Lungs: Clear to auscultation, Normal respiratory effort Cardiovascular: Regular Rate, Regular Rhythm Abdomen: no tenderness (Female) Exam: Cervix Motion Tenderness Back Exam: Normal Inspection Extremities: no edema Neurological: no new focal deficit - Problem List Review Problem List Initiated/Reviewed/Updated: Yes - My Orders Last 24 Hours: My Active Orders 08/07/16 13:16 Consult to Speech Language Pathology [DELIVERY STOCK CLERK Evaluation and Treatment] [CONS] Routine 08/09/16 05:11 BASIC METABOLIC PANEL,BMP [CHEM] AM CBC WITH AUTO DIFF [HEME] AM 08/10/16 05:11 BASIC METABOLIC PANEL,BMP [CHEM] AM CBC WITH AUTO DIFF [HEME] AM - Plan Plan:: 70 yo fm with history of DM, HTN and Az Dementia admitted for Generalized Weakness and AMS. -Patient improving -Echo Today -swallow evaluation by speech pathology today -Patient will likley need SNF placement. Case management to discuss with patients family.
[2016-08-08] MEDS: Donepezil 10 MG Tab PO SCH (20:47)
[2016-08-09 05:21] LABS: CHLORIDE,CL 101 mmol/L (98-110); SODIUM,NA 139 mmol/L (136-146)
[2016-08-09] MEDS: Insulin Aspart 100 Units/ML 3 ML Pen SUBCUT SCH ×2 (07:16→11:38)
[2016-08-09] MEDS: Hydrochlorothiazide 25 MG Tab PO SCH (08:54)
[2016-08-09] MEDS: amLODIPine 2.5 MG Tab PO SCH (08:54)
[2016-08-09 09:31] VITALS: BP 124/70
[2016-08-09] MEDS: Acetaminophen 325 MG Tab PO PRN (12:12)
--- NOTE | 2016-08-09 12:35 | PCM.DCSUM1 ---
[id number]/Narrative:: 70 yo fm was admitted on 08/05 for generalized weakness secondary to dehydration. Head CT was done in ED but no acute changes were seen. She was treated with IVF. She showed signs of recovery daily. PT/OT was started. Patients family was concerned about possible swallowing difficulty. She was seen by speech pathology and they recommended resuming regular diet but administering po medications with puree. Patients family decided that patient will be discharged to [facility]. Her care will be assumed by her pcp Elsie Conroy. She was contacted and notified. Echocardiogram was done prior to DC and results will be sent to pcp when available Discharge diagnosis: 1. Weakness, improved 2. Dehydration, corrected 3. Hyperglycemia, likely iatrogenic secondary to discontinuation of home OGT Discharge Plan: 1. DC to [facility] 2. resume home medications except olanzapine 3. regular diet 4. administer PO medications with puree 5. f/u with pcp - Discharge Data Discharge Date: 08/09/16 Discharge Disposition: DC/Tfer to [facility] 03 Condition: Poor - Patient Summary/Data Consults: Consultations 08/07/16 13:16 Consult to Speech Language Pathology [TUNNEL ELASTIC OPERATOR ZIGZAG Evaluation and Treatment] [CONS] Routine - Patient Instructions Diet: Regular Diet as Tolerated Activity: As Tolerated Notify Provider of: Fever, Swelling and Redness, Drainage, Nausea and/or Vomiting Other/Special Instructions: -Please administer oral medications with puree due to mild difficulty swallowing. -resume regular diet as tolerated - Discharge Plan Home Medications: Home Meds Donepezil [Aricept] 10 mg PO DAILY 08/05/16 [History] Hydrochlorothiazide 25 mg PO DAILY 08/05/16 [History] Simvastatin [Zocor] 20 mg PO ASDIRECTED 08/05/16 [History] Venlafaxine HCl [Venlafaxine ER] 75 mg PO DAILY 08/05/16 [History] amLODIPine Besylate [Norvasc] 2.5 mg PO DAILY 08/05/16 [History] sitaGLIPtin Phos/Metformin HCl [Janumet 50-500 MG] 1 tab PO BID 08/05/16 [ History] Patient Handouts: Dehydration, Adult, [id number]-[id number] Forms: ED Department Discharge Referrals: [facility] [Ordering Only Provider] - - Patient Data Vitals - Most Recent: Last Vital Signs Temp 36.9 C 08/09/16 08:00 Pulse 82 08/09/16 08:00 Resp 16 08/09/16 08:00 BP 128/70 08/09/16 08:54 Pulse Ox 96 08/09/16 08:00 Weight - Most Recent: 74 kg I&O - Last 24 hours: Intake & Output 08/08/16 08/09/16 08/09/16 22:59 06:59 14:59 Intake Total 480 450 Output Total 1000 600 Balance -520 -150 Lab Results - Last 24 hrs: Laboratory Results - last 24 hr 08/08/16 08/08/16 08/09/16 Range/Units 13:03 16:15 04:24 WBC 7.68 (4.0-11.0) K/uL RBC 4.70 (4.30-5.90) M/uL Hgb 14.1 (12.0-16.0) g/dL Hct 41.6 (36.0-46.0) % MCV 88.5 (80.0-98.0) fL MCH 30.0 (27.0-32.0) pg MCHC 33.9 (31.0-37.0) g/dL RDW Std Deviation 41.1 (28.0-62.0) fl RDW Coeff of Chacha 13 (11.0-15.0) % Plt Count 253 (150-400) K/uL MPV 10.00 (7.40-12.00) fL Neut % (Auto) 67.5 (48.0-80.0) % Lymph % (Auto) 17.3 (16.0-40.0) % [place] % (Auto) 13.2 (0.0-15.0) % Eos % (Auto) 1.7 (0.0-7.0) % Baso % (Auto) 0.3 (0.0-1.5) % Neut # (Auto) 5.2 (1.4-5.7) K/uL Lymph # (Auto) 1.3 (0.6-2.4) K/uL Sherman # (Auto) 1.0 H (0.0-0.8) K/uL Eos # (Auto) 0.1 (0.0-0.7) K/uL Baso # (Auto) 0.0 (0.0-0.1) K/uL Nucleated RBC % 0.0 /100WBC Nucleated RBCs # 0 K/uL Sodium (136-146) mmol/L Potassium (3.5-5.1) mmol/L Chloride (98-110) mmol/L Carbon Dioxide (21-31) mmol/L BUN (6.0-23.0) mg/dL Creatinine (0.6-1.5) mg/dL Est Cr Clr Drug Dosing mL/min Estimated GFR (MDRD) ml/min Glucose (60-110) mg/dL POC Glucose 288 H 288 H (60-110) mg/dL Calcium (8.8-10.8) mg/dL 08/09/16 08/09/16 08/09/16 Range/Units 04:24 06:55 11:34 WBC (4.0-11.0) K/uL RBC (4.30-5.90) M/uL Hgb (12.0-16.0) g/dL Hct (36.0-46.0) % MCV (80.0-98.0) fL MCH (27.0-32.0) pg MCHC (31.0-37.0) g/dL RDW Std Deviation (28.0-62.0) fl RDW Coeff of Chacha (11.0-15.0) % Plt Count (150-400) K/uL MPV (7.40-12.00) fL Neut % (Auto) (48.0-80.0) % Lymph % (Auto) (16.0-40.0) % [place] % (Auto) (0.0-15.0) % Eos % (Auto) (0.0-7.0) % Baso % (Auto) (0.0-1.5) % Neut # (Auto) (1.4-5.7) K/uL Lymph # (Auto) (0.6-2.4) K/uL [place] # (Auto) (0.0-0.8) K/uL Eos # (Auto) (0.0-0.7) K/uL Baso # (Auto) (0.0-0.1) K/uL Nucleated RBC % /100WBC Nucleated RBCs # K/uL Sodium 139 (136-146) mmol/L Potassium 4.2 (3.5-5.1) mmol/L Chloride 101 (98-110) mmol/L Carbon Dioxide 25 (21-31) mmol/L BUN 15 (6.0-23.0) mg/dL Creatinine 0.9 (0.6-1.5) mg/dL Est Cr Clr Drug Dosing 52.34 mL/min Estimated GFR (MDRD) > 60.0 ml/min Glucose 266 H (60-110) mg/dL POC Glucose 273 H 347 H (60-110) mg/dL Calcium 10.0 (8.8-10.8) mg/dL Med Orders - Current: Current Medications Acetaminophen (Tylenol) 650 mg PO Q4H PRN PRN Reason: Pain (Mild 1-3)/fever Last Admin: 08/09/16 12:12 Dose: 650 mg Amlodipine Besylate (Norvasc) 2.5 mg PO DAILY [facility] Last Admin: 08/09/16 08:54 Dose: 2.5 mg Donepezil HCl (Aricept) 10 mg PO BEDTIME [facility] Last Admin: 08/08/16 20:47 Dose: 10 mg Hydrochlorothiazide (Hydrochlorothiazide) 25 mg PO DAILY [facility] Last Admin: 08/09/16 08:54 Dose: 25 mg Insulin Aspart (Novolog) 0 unit SUBCUT TIDAC NORBERTO PRN Reason: Protocol Last Admin: 08/09/16 11:38 Dose: 8 units Sodium Chloride (Saline Flush) 10 ml FLUSH ASDIRECTED PRN PRN Reason: Keep Vein Open Last Admin: 08/05/16 14:27 Dose: 10 ml Sodium Chloride (Saline Flush) 2.5 ml FLUSH ASDIRECTED PRN PRN Reason: Keep Vein Open Last Admin: 08/05/16 14:27 Dose: 2.5 ml Discontinued Medications Sodium Chloride (Normal Saline) 1,000 mls @ 125 mls/hr IV STAT [facility] Last Admin: 08/05/16 14:27 Dose: 125 mls/hr Sodium Chloride (Normal Saline) 1,000 mls @ 125 mls/hr IV ASDIRECTED [facility] Last Admin: 08/05/16 22:23 Dose: 125 mls/hr *Q Meaningful Use (DIS) - VTE *Q VTE Criteria *Q: - Stroke *Q Stroke Criteria *Q: - AMI *Q AMI Criteria *Q: <Gualberto Lanier J - Last Filed: 08/10/16 20:50> Discharge Summary - Patient Summary/Data Consults: Consultations 08/07/16 13:16 Consult to Speech Language Pathology [TUNNEL ELASTIC OPERATOR ZIGZAG Evaluation and Treatment] [CONS] Routine - Patient Data Vitals - Most Recent: Last Vital Signs Temp 36.9 C 08/09/16 08:00 Pulse 82 08/09/16 08:00 Resp 16 08/09/16 08:00 BP 128/70 08/09/16 08:54 Pulse Ox 96 08/09/16 08:00 Med Orders - Current: Current Medications Discontinued Medications Acetaminophen (Tylenol) 650 mg PO Q4H PRN PRN Reason: Pain (Mild 1-3)/fever Last Admin: 08/09/16 12:12 Dose: 650 mg Amlodipine Besylate (Norvasc) 2.5 mg PO DAILY [facility] Last Admin: 08/09/16 08:54 Dose: 2.5 mg Donepezil HCl (Aricept) 10 mg PO BEDTIME [facility] Last Admin: 08/08/16 20:47 Dose: 10 mg Hydrochlorothiazide (Hydrochlorothiazide) 25 mg PO DAILY [facility] Last Admin: 08/09/16 08:54 Dose: 25 mg Sodium Chloride (Normal Saline) 1,000 mls @ 125 mls/hr IV STAT [facility] Last Admin: 08/05/16 14:27 Dose: 125 mls/hr Sodium Chloride (Normal Saline) 1,000 mls @ 125 mls/hr IV ASDIRECTED NORBERTO Last Admin: 08/05/16 22:23 Dose: 125 mls/hr Insulin Aspart (Novolog) 0 unit SUBCUT TIDAC NORBERTO PRN Reason: Protocol Last Admin: 08/09/16 11:38 Dose: 8 units Sodium Chloride (Saline Flush) 10 ml FLUSH ASDIRECTED PRN PRN Reason: Keep Vein Open Last Admin: 08/05/16 14:27 Dose: 10 ml Sodium Chloride (Saline Flush) 2.5 ml FLUSH ASDIRECTED PRN PRN Reason: Keep Vein Open Last Admin: 08/05/16 14:27 Dose: 2.5 ml *Q Meaningful Use (DIS) - VTE *Q VTE Criteria *Q: - Stroke *Q Stroke Criteria *Q: - AMI *Q AMI Criteria *Q: - Free Text/Narrative Note: I have examined patient. I have discussed findings with resident. I agree with the assessment and plan outlined in the following resident's note.
--- NOTE | 2016-08-10 15:17 | ECHO ---
The echocardiogram report can be seen in this patient's EMR in the Reports section. ZEINAB
== END 2016-08-09 12:38 | DRG 861 ==
LOC: MW.ED 13:42 → MW.MS 16:56
PROVIDERS: ADMIT Internal Medicine; ATTEND Internal Medicine
DX: R53.1 Weakness (principal); E86.0 Dehydration; E11.65 Type 2 diabetes mellitus with hyperglycemia; I10 Essential (primary) hypertension; G30.9 Alzheimer's disease, unspecified; F02.80 Dementia in other diseases classified elsewhere, unspecified severity, without behavioral disturbance, psychotic disturbance, mood disturbance, and anxiety; R41.82 Altered mental status, unspecified; E78.00 Pure hypercholesterolemia, unspecified; F32.9 Major depressive disorder, single episode, unspecified; E87.1 Hypo-osmolality and hyponatremia; R13.10 Dysphagia, unspecified; Z79.899 Other long term (current) drug therapy; Z91.81 History of falling
CPT/HCPCS: 36415; 70450; 70450-26; 71010; 71010-26; 80048; 80053; 80305; 81001; 82140; 82550; 82962; 83605; 85025; 85379; 85610; 87040; 87086; 92610-GN; 93005; 93306; 96360; 96361; 97161-GP; 99285; 99285-25; A9270-GY; G0480; J1815-GY; J7040